=== PATIENT | male | born 1960 | race African-American/Black ===

== ENCOUNTER 2019-06-06 05:32 | Emergency (ER) | payer OTHER, MEDICAID ==
[~2019-06-06] VITALS: Ht 172.7 cm; Wt 73.0 kg
[2019-06-06] MEDS ORDERED: LIDOCAINE HCL/PF 1% 10 MG/ML 5ML VIAL IJ ONE (09:00)
[2019-06-06] MEDS ORDERED: OXYCODONE HCL/ACETAMINOPHEN 5/325MG TABLET PO ONE (09:00)
[2019-06-06 09:13] LABS: BASOPHILS % 0.7 % (0.0-2.0); EOSINOPHILS % 0.8 % (0.0-5.0); HEMOGLOBIN. 13.3 g/dL (14.0-18.0); LYMPHOCYTES % 22.2 % (20.0-50.0); MEAN CORPUSCULAR HEMOGLOBIN 34.5 pg (28.0-32.0); MEAN CORPUSCULAR VOLUME 98.5 fL (80.0-94.0); MEAN PLATELET VOLUME 8.6 fl (7.4-10.4); MONOCYTES % 7.1 % (2.0-8.0); NEUTROPHILS % 69.2 % (40.0-76.0); PLATELET 204 x1000/uL (130-400); RED BLOOD CELL COUNT 3.86 mill/uL (4.7-6.1); RED CELL DISTRIBUTION WIDTH 13.5 % (11.6-14.6)
[2019-06-06 09:19] LABS: CHLORIDE 100 mEq/L (98-107)
[2019-06-06 09:23] LABS: ETHANOL BLOOD 77 mg/dL; INR 1.1; PROTHROMBIN TIME 12.4 sec (9.6-11.0)
[2019-06-06] MEDS ORDERED: MORPHINE SULFATE 4 MG/ML CPJ (NOT FOR IM USE) IV ONE (10:00)
[2019-06-06 14:00] VITALS: BP 130/80
== END 2019-06-06 14:28 | disposition short-term general hospital (02) ==
LOC: ER 06:13
DX: S82.232B Displaced oblique fracture of shaft of left tibia, initial encounter for open fracture type I or II (principal); S09.90XA Unspecified injury of head, initial encounter; W18.2XXA Fall in (into) shower or empty bathtub, initial encounter; Y93.E1 Activity, personal bathing and showering; Y92.012 Bathroom of single-family (private) house as the place of occurrence of the external cause
CPT/HCPCS: 12001; 36415; 70450; 73560; 73590; 80053; 80320; 85025; 85610; 96374; 99285; J2270; J3490; 82542; G0480